=== PATIENT | female | born 1980 | race Caucasian/White ===

== ENCOUNTER 2023-02-07 15:30 | Outpatient (OUT) | payer BC, SELFPAY ==
[2023-02-07 16:16] LABS: Basophils Percent Auto 0.6 % (0.2-2.0); Eosinophils Absolute Auto 0.1 10^3/uL (0.0-0.7); Eosinophils Percent Auto 1.1 % (0.9-7.0); Hematocrit 35.9 % (36.0-48.0); Hemoglobin 11.5 g/dL (12.0-16.0); Immature Granulocytes Abs Auto 0.01 10^3/uL (0.00-0.03); Immature Granulocytes Pct Auto 0.1 % (0.0-0.5); Lymphocytes Absolute Auto 1.6 10^3/uL (1.2-3.8); Lymphocytes Percent Auto 22.6 % (20.5-60.0); Mean Corpuscular Hemoglobin 26.8 pg (26.7-34.0); Mean Corpuscular Volume 83.7 fL (81.0-99.0); Mean Platelet Volume 9.2 fL (9.5-13.5); Monocytes Absolute Auto 0.4 10^3/uL (0.3-0.8); Monocytes Percent Auto 5.8 % (1.7-12.0); Neutrophils Absolute Auto 4.9 10^3/uL (1.4-6.5); Neutrophils Percent Auto 69.8 % (43.0-75.0); Platelet Count 365 10^3/uL (150-450); Red Blood Count 4.29 10^6/uL (4.20-5.40); White Blood Count 7.1 10^3/uL (4.0-11.0)
[2023-02-07 16:52] LABS: Percent Iron Saturation 9.1 %
[2023-02-07 16:57] LABS: Alanine Aminotransferase 31 U/L (14-59); Albumin Globulin Ratio 0.9; Albumin Level 3.5 g/dL (3.4-5.0); Alkaline Phosphatase 80 U/L (46-116); Anion Gap 13.2; Aspartate Amino Transferase 19 U/L (15-37); BUN Creatinine Ratio 30.9; Bilirubin Total 0.3 mg/dL (0.2-1.0); Calcium 8.8 mg/dL (8.5-10.1); Carbon Dioxide 25.4 mmol/L (21.0-32.0); Chloride 103 mmol/L (98-107); Estimated GFR (African America >60 (>=60); Estimated GFR (Non-African Ame >60 (>=60); Glucose 84 mg/dL (74-106); Potassium 3.6 mmol/L (3.5-5.1); Sodium 138 mmol/L (136-145); Total Protein 7.5 g/dL (6.4-8.2)
[2023-02-09 16:12] LABS: Vitamin B1 (Thiamine), Blood 102.9 nmol/L (66.5-200.0)
== END 2023-02-07 15:31 | disposition home or self-care (01) ==
LOC: LAB 15:36
PROVIDERS: PCP Physician Assistant
DX: Z90.3 Acquired absence of stomach [part of] (principal); E66.01 Morbid (severe) obesity due to excess calories
CPT/HCPCS: 36415; 80053; 82306; 82607; 83540; 83550; 84425; 85025

== ENCOUNTER 2024-10-08 08:36 | Outpatient (OUT) | payer BC, SELFPAY ==
[2024-10-09 04:07] LABS: Estradiol 67.8 pg/mL (.); FSH 7.1 mIU/mL (.); Luteinizing Hormone(LH) 6.3 mIU/mL (.); Progesterone 8.9 ng/mL (.)
[2024-10-10 03:07] LABS: Free Testosterone(Direct) 0.6 pg/mL (0.0-4.2); Testosterone 23 ng/dL (4-50)
[2024-10-14 07:10] LABS: DHEA, Serum 135 ng/dL (31-701)
== END 2024-10-08 08:37 | disposition home or self-care (01) ==
LOC: LAB 08:39
PROVIDERS: PCP Physician Assistant; Visit Provider Physician Assistant
DX: E28.2 Polycystic ovarian syndrome (principal); R63.5 Abnormal weight gain
CPT/HCPCS: 82626; 82670; 83001; 83002; 84144; 84402; 84403